=== PATIENT | male | born 1955 | race Caucasian/White ===

== ENCOUNTER 2022-03-08 11:00 | Outpatient (RCR) | payer MEDICARE, BC, SELFPAY | END 2022-03-08 11:05 | disposition home or self-care (01) | LOC: PT 11:00 | PROVIDERS: Visit Provider Dermatology | DX: I89.0 Lymphedema, not elsewhere classified (principal) | CPT/HCPCS: 97110; 97140; 97162; 97164; 97760 ==

== ENCOUNTER 2023-07-02 10:58 | Outpatient (RCR) | payer MEDICARE, BC, SELFPAY | END 2023-07-02 12:00 | disposition home or self-care (01) | LOC: PT 10:58 | PROVIDERS: Visit Provider Family Medicine | DX: I89.0 Lymphedema, not elsewhere classified (principal); I87.2 Venous insufficiency (chronic) (peripheral) | CPT/HCPCS: 97163 ==